=== PATIENT | male | born 1945 | race Two or more races ===

== ENCOUNTER 2017-11-07 11:00 | Outpatient (CLI) | payer OTHER ==
[~2017-11-07 11:00] MED LIST: ATACAND4 MG; CRESTOR10 MG
== END 2017-11-07 11:06 | disposition home or self-care (01) ==
LOC: RAD 11:00
DX: J45.998 Other asthma (principal); J01.00 Acute maxillary sinusitis, unspecified; I10 Essential (primary) hypertension; K57.92 Diverticulitis of intestine, part unspecified, without perforation or abscess without bleeding

== ENCOUNTER 2017-12-04 10:23 | Outpatient (CLI) | payer OTHER | END 2017-12-04 10:28 | disposition home or self-care (01) | LOC: RAD 10:23 | DX: R10.9 Unspecified abdominal pain (principal) ==

== ENCOUNTER → 2017-12-10 | Outpatient (CLI) | payer OTHER | END | disposition home or self-care (01) | LOC: SONOGRAMA 08:07 | DX: R10.9 Unspecified abdominal pain (principal); R31.0 Gross hematuria; Q61.00 Congenital renal cyst, unspecified ==

== ENCOUNTER 2018-04-08 10:19 | Outpatient (CLI) | payer OTHER | END 2018-04-08 10:38 | disposition home or self-care (01) | LOC: RAD 10:19 | DX: N20.1 Calculus of ureter (principal); R10.9 Unspecified abdominal pain ==

== ENCOUNTER 2019-01-06 15:13 | Outpatient (CLI) | payer OTHER | END 2019-01-06 15:18 | disposition home or self-care (01) | LOC: RAD 15:13 | DX: N20.1 Calculus of ureter (principal) ==

== ENCOUNTER 2019-03-05 14:56 | Outpatient (CLI) | payer OTHER | END 2019-03-05 14:58 | disposition home or self-care (01) | LOC: RAD 14:56 | DX: H90.0 Conductive hearing loss, bilateral (principal) ==